=== PATIENT | female | born 1950 | race Caucasian/White ===

== ENCOUNTER 2017-09-14 21:18 | Emergency (ER) | payer MEDICARE, OTHER ==
[2017-09-14] MEDS ORDERED: Acetaminophen/HYDROcodone 325-10 MG Tab PO STA (22:38)
[2017-09-14] MEDS ORDERED: Ondansetron 8 MG Tab.DIS PO ONE (23:06)
[2017-09-14] MEDS ORDERED: Clindamycin HCl 150 MG Cap PO STA (23:14)
--- NOTE | 2017-09-14 23:15 | EDM.PDOC ---
ED HPI GENERAL MEDICAL PROBLEM - General Chief Complaint: General Stated Complaint: COLD/SORE THROAT Time Seen by Provider: 09/14/17 21:23 Source of Information: Reports: Patient History Limitations: Reports: No Limitations - History of Present Illness INITIAL COMMENTS - FREE TEXT/NARRATIVE: 66 y.o.f came to the ed with cold symptoms including a soar throat and painfull swallowing. 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 Generalized Pain Score (Numeric/FACES): 8 - Related Data Allergies Allergy/AdvReac Type Severity Reaction Status Date / Time erythromycin lactobionate Allergy Mild Diarrhea Verified 10/27/14 14:56 [From Erythrocin] sulfamethoxazole Allergy Nausea Verified 09/14/17 21:32 [From Bactrim] trimethoprim [From Bactrim] Allergy Nausea Verified 09/14/17 21:32 amoxicillin trihydrate AdvReac Mild Diarrhea Verified 10/27/14 14:55 [From Augmentin] potassium clavulanate AdvReac Mild Diarrhea Verified 10/27/14 14:55 [From Augmentin] Home Meds: Home Meds ALPRAZolam [Xanax] 0.5 mg PO DAILY PRN 10/27/14 [History] Albuterol Sulfate [Albuterol Sulfate HFA] 2 puff IH Q4HR PRN 10/27/14 [History] Aspirin [Derrick Chewable Aspirin] 81 mg PO DAILY 10/27/14 [History] Atenolol [Tenormin] 25 mg PO DAILY 10/27/14 [History] Calcium Carbonate/Vitamin D3 [Calcium 600-Vit D3 200 Tablet] 1 each PO DAILY 06/01 [History] Citalopram Hydrobromide [Celexa] 40 mg PO DAILY 10/27/14 [History] Losartan/Hydrochlorothiazide [Hyzaar 100-12.5 Tablet] 1 each PO DAILY 10/27/14 [ History] Multivit-Min/FA/Lycopene/Lut [Centrum Silver Tablet] 1 each PO DAILY 10/27/14 [ History] Olopatadine [Patanol 0.1% Ophth Soln] 1 drop EYEBOTH BID 10/27/14 [History] atorvaSTATin [Lipitor] 40 mg PO BEDTIME 10/27/14 [History] Clindamycin HCl 300 mg PO Q6HR #30 capsule 09/14/17 [Rx] Omeprazole 20 mg DAILY 09/14/17 [History] Ondansetron [Zofran ODT] 4 mg PO Q6H PRN #12 tab.dis 09/14/17 [Rx] traMADol HCl [Ultram] 50 mg PO Q6HR #12 tablet 09/14/17 [Rx] Past Medical History HEENT History: Reports: Sinusitis Cardiovascular History: Reports: High Cholesterol, Hypertension Respiratory History: Reports: Bronchitis, Recurrent, Pneumonia, Recurrent, Other (See Below) Other Respiratory History: uses inhaler when has cold Gastrointestinal History: Reports: Gastritis, Other (See Below) 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 History: Musculoskeletal History: Reports: Arthritis Psychiatric History: Reports: Anxiety, Depression - Infectious Disease History Infectious Disease History: Reports: Measles - Past Surgical History Head Surgeries/Procedures: Reports: None GI Surgical History: Reports: Colonoscopy, EGD Social & Family History - Family History Family Medical History: Noncontributory - Tobacco Use Smoking Status *Q: Current Every Day Smoker Years of Tobacco use: 40 Packs/Tins Daily: 0.5 - Caffeine Use Caffeine Use: Reports: Coffee, Soda - Alcohol Use Days Per Week of Alcohol Use: 0 - Recreational Drug Use Recreational Drug Use: No ED ROS GENERAL - Review of Systems Review Of Systems: See Below Constitutional: Reports: No Symptoms HEENT: Reports: Rhinitis, Throat Pain Respiratory: Reports: No Symptoms Cardiovascular: Reports: No Symptoms Endocrine: Reports: No Symptoms GI/Abdominal: Reports: No Symptoms : Reports: No Symptoms Musculoskeletal: Reports: No Symptoms Skin: Reports: No Symptoms Neurological: Reports: No Symptoms Psychiatric: Reports: No Symptoms Hematologic/Lymphatic: Reports: No Symptoms Immunologic: Reports: No Symptoms ED EXAM, GENERAL - Physical Exam Exam: See Below Exam Limited By: No Limitations General Appearance: Alert, WD/WN, Mild Distress Eye Exam: Bilateral Eye: Normal Inspection Ears: Normal External Exam Ear Exam: Bilateral Ear: Auricle Normal Nose: Normal Inspection, Normal Mucosa Throat/Mouth: Normal Lips, Normal Gums, No Airway Compromise, Other (pharyngitis ) Head: Atraumatic, Normocephalic Neck: Normal Inspection, Supple, Non-Tender, Full Range of Motion Respiratory/Chest: No Respiratory Distress, Lungs Clear, Normal Breath Sounds Cardiovascular: Normal Peripheral Pulses, Regular Rate, Rhythm, No Edema Peripheral Pulses: 1+: Brachial (R) GI/Abdominal: Normal Bowel Sounds, Soft, Non-Tender, No Organomegaly, No Abnormal Bruit (Female) Exam: Deferred Rectal (Female) Exam: Deferred Back Exam: Normal Inspection, Full Range of Motion Extremities: Normal Inspection, Normal Range of Motion, Non-Tender, No Pedal Edema, Normal Capillary Refill Neurological: Alert, Oriented, CN II-XII Intact, Normal Cognition, Normal Gait, No Motor/Sensory Deficits Psychiatric: Normal Affect, Normal Mood Skin Exam: Warm, Dry, Intact, Normal Color, No Rash Lymphatic: No Adenopathy Course - Vital Signs Text/Narrative:: 66 y.o.f came to the ed with cold symptoms including a soar throat and painfull swallowing. No other acute medical issues BP 148/78 pulse 78 RR 18 Pulse ox 98 Temp 36.8 PE: WNWD F with a cold symtpms and a sore throat. Nausea Labs: Sterp and infuenza test were neg Impression: Pharynditis, step presumed Tx: Clindamycin, [place], Zofran Reexam: Improved Plan; D/C with instructioms Last Recorded V/S: Last Vital Signs Temp 36.7 C 09/14/17 21:23 Pulse 73 09/14/17 21:23 Resp 20 09/14/17 23:15 BP 147/85 H 09/14/17 23:15 Pulse Ox 97 09/14/17 23:15 - Orders/Labs/Meds Orders: Active Orders 24 hr Category Date Time Status Chest 2V [CR] Stat Exams 09/14/17 21:52 Taken Max Facial Sinus wo Cont [CT] Stat Exams 09/14/17 22:00 Taken CULTURE STREP A CONFIRMATION [RM] Stat Lab 09/14/17 21:35 Results STREP SCRN A RAPID W CULT CONF [RM] Stat Lab 09/14/17 21:35 Ordered Meds: Medications Discontinued Medications Generic Name Dose Route Start Last Admin Trade Name Freq PRN Reason Stop Dose Admin Hydrocodone Bitart/Acetaminophen 1 tab 09/14/17 22:38 09/14/17 23:03 [place] 325-10 Mg PO 09/14/17 22:39 1 tab ONETIME STA Administration Clindamycin HCl 450 mg 09/14/17 23:14 09/14/17 23:26 Cle[place] PO 09/14/17 23:15 450 mg ONETIME STA Administration Ondansetron HCl 8 mg 09/14/17 23:06 09/14/17 23:11 Zofran Odt PO 09/14/17 23:07 8 mg ONETIME ONE Administration Departure - Departure Time of Disposition: 23:15 Disposition: Home, Self-Care 01 Condition: Good Clinical Impression: Pharyngitis Qualifiers: Pharyngitis/tonsillitis etiology: other specified organisms Qualified Code(s): J02.8 - Acute pharyngitis due to other specified organisms - Discharge Information Prescriptions: Clindamycin HCl 300 mg PO Q6HR #30 capsule traMADol HCl [Ultram] 50 mg PO Q6HR #12 tablet Ondansetron [Zofran ODT] 4 mg PO Q6H PRN #12 tab.dis PRN Reason: Nausea Instructions: Ondansetron oral dissolving tablet, Otitis Media, Adult, Easy-to- Read, Viral Respiratory Infection, [id number], Clindamycin capsules, Pharyngitis, [id number] Referrals: Светлана Siegel NP [Primary Care Provider] - Forms: ED Department Discharge Additional Instructions: Presumed strep pharyngitis, please take the meds as recommended, please follow up next week at clinic for recheck, come back if your symptoms get worse acutely. Increase fluids. - My Orders Last 24 Hours: My Active Orders 09/14/17 21:35 CULTURE STREP A CONFIRMATION [RM] Stat STREP SCRN A RAPID W CULT CONF [RM] Stat 09/14/17 21:52 Chest 2V [CR] Stat 09/14/17 22:00 Max Facial Sinus wo Cont [CT] Stat - Assessment/Plan Last 24 Hours: My Active Orders 09/14/17 21:35 CULTURE STREP A CONFIRMATION [RM] Stat STREP SCRN A RAPID W CULT CONF [RM] Stat 09/14/17 21:52 Chest 2V [CR] Stat 09/14/17 22:00 Max Facial Sinus wo Cont [CT] Stat
[2017-09-15 01:12] VITALS: BP 147/85
== END 2017-09-14 23:35 | disposition home or self-care (01) ==
LOC: FB.ED 21:18
DX: J02.8 Acute pharyngitis due to other specified organisms (principal); F17.210 Nicotine dependence, cigarettes, uncomplicated; I10 Essential (primary) hypertension; E78.00 Pure hypercholesterolemia, unspecified; Z79.82 Long term (current) use of aspirin; Z79.899 Other long term (current) drug therapy; Z88.1 Allergy status to other antibiotic agents; Z88.8 Allergy status to other drugs, medicaments and biological substances; Z88.2 Allergy status to sulfonamides
CPT/HCPCS: 70486; 71046; 87081; 87804; 87880; 99284; A9270; 99283

== ENCOUNTER 2018-08-10 20:14 | Emergency (ER) | payer MEDICARE, OTHER ==
[2018-08-10] MEDS ORDERED: Ketorolac 30 MG/ML SDV IM ONE (20:25)
[2018-08-10] MEDS ORDERED: hydrOXYzine HCl 50 MG/ML SDV IM ONE (20:25)
--- NOTE | 2018-08-10 20:29 | EDM.PDOC ---
ED HPI GENERAL MEDICAL PROBLEM - General Stated Complaint: HEADACHE,CHILL Time Seen by Provider: 08/10/18 20:27 Source of Information: Reports: Patient History Limitations: Reports: No Limitations - History of Present Illness INITIAL COMMENTS - FREE TEXT/NARRATIVE: 67-year-old female who complains of headache essentially global, moderate to severe headache that makes it hard for her to sleep tonight. This was preceded by cough, fever and chills that started yesterday .She denies any neck stiffness but endorses nausea and vomiting, and inability to keep anything down. She has a history of anxiety, hyperlipidemia and hypertension headache Pain Score (Numeric/FACES): 6 - Related Data Allergies Allergy/AdvReac Type Severity Reaction Status Date / Time erythromycin lactobionate Allergy Mild Diarrhea Verified 08/10/18 21:00 [From Erythrocin] sulfamethoxazole Allergy Nausea Verified 08/10/18 21:00 [From Bactrim] trimethoprim [From Bactrim] Allergy Nausea Verified 08/10/18 21:00 amoxicillin trihydrate AdvReac Mild Diarrhea Verified 08/10/18 21:00 [From Augmentin] potassium clavulanate AdvReac Mild Diarrhea Verified 08/10/18 21:00 [From Augmentin] Home Meds: Home Meds ALPRAZolam [Xanax] 0.5 mg PO DAILY PRN 10/27/14 [History] Albuterol Sulfate [Albuterol Sulfate HFA] 2 puff IH Q4HR PRN 10/27/14 [History] Aspirin [Derrick Chewable Aspirin] 81 mg PO DAILY 10/27/14 [History] Atenolol [Tenormin] 25 mg PO DAILY 10/27/14 [History] Calcium Carbonate/Vitamin D3 [Calcium 600-Vit D3 200 Tablet] 1 each PO DAILY 06/01 [History] Citalopram Hydrobromide [Celexa] 40 mg PO DAILY 10/27/14 [History] Losartan/Hydrochlorothiazide [Hyzaar 100-12.5 Tablet] 1 each PO DAILY 10/27/14 [ History] Multivit-Min/FA/Lycopene/Lut [Centrum Silver Tablet] 1 each PO DAILY 10/27/14 [ History] Olopatadine [Patanol 0.1% Ophth Soln] 1 drop EYEBOTH BID 05/12/15 [History] atorvaSTATin [Lipitor] 40 mg PO BEDTIME 10/27/14 [History] Omeprazole 20 mg DAILY 09/14/17 [History] Past Medical History HEENT History: Reports: Sinusitis Cardiovascular History: Reports: High Cholesterol, Hypertension Respiratory History: Reports: Bronchitis, Recurrent, Pneumonia, Recurrent, Other (See Below) Other Respiratory History: uses inhaler when has cold Gastrointestinal History: Reports: Gastritis, Other (See Below) 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 - Physical Exam Exam: See Below Exam Limited By: No Limitations General Appearance: Alert, WD/WN Ears: Normal External Exam Nose: Normal Inspection Throat/Mouth: Normal Inspection Head Exam: Atraumatic, Normocephalic Neck: Normal Inspection, Supple, Non-Tender, Full Range of Motion Respiratory/Chest: Decreased Breath Sounds, Crackles Neuro Exam (Abbreviated): Alert, Oriented, CN II-XII Intact Course - Vital Signs Last Recorded V/S: Last Vital Signs Temp 98.7 F 08/10/18 20:33 Pulse 76 08/10/18 20:33 Resp 16 08/10/18 20:33 BP 107/63 08/10/18 20:33 Pulse Ox 99 08/10/18 20:33 - Orders/Labs/Meds Orders: Active Orders 24 hr Category Date Time Status Chest 2V [CR] Stat Exams 08/10/18 20:25 Taken Meds: Medications Discontinued Medications Generic Name Dose Route Start Last Admin Trade Name Freq PRN Reason Stop Dose Admin Hydroxyzine HCl 100 mg 08/10/18 20:25 08/10/18 20:51 Vistaril IM 08/10/18 20:26 100 mg ONETIME ONE Administration Ketorolac Tromethamine 15 mg 08/10/18 20:25 08/10/18 20:51 Toradol IM 08/10/18 20:26 15 mg ONETIME ONE Administration Departure - Departure Time of Disposition: 21:07 Disposition: Home, Self-Care 01 Condition: Good Clinical Impression: Influenza - Discharge Information Referrals: Светлана Siegel NP [Primary Care Provider] - - Problem List & Annotations (1) Influenza SNOMED Code(s): 8750853 Code(s): J11.1 - FLU DUE TO UNIDENTIFIED INFLUENZA VIRUS W OTH RESP MANIFEST Status: Acute Current Visit: Yes (2) Headache SNOMED Code(s): 71852124 Code(s): R51 - HEADACHE Status: Acute Current Visit: Yes Qualifiers: Headache type: tension-type - Problem List Review Problem List Initiated/Reviewed/Updated: Yes - My Orders Last 24 Hours: My Active Orders 08/10/18 20:25 Chest 2V [CR] Stat - Assessment/Plan Last 24 Hours: My Active Orders 08/10/18 20:25 Chest 2V [CR] Stat Plan: Tamiflu. Symptomatic relief
[2018-08-10 20:37] VITALS: BP 107/63
== END 2018-08-10 21:30 | disposition home or self-care (01) ==
LOC: FB.ED 20:14
DX: J10.1 Influenza due to other identified influenza virus with other respiratory manifestations (principal); E78.00 Pure hypercholesterolemia, unspecified; I10 Essential (primary) hypertension; F41.9 Anxiety disorder, unspecified; F32.9 Major depressive disorder, single episode, unspecified; Z88.1 Allergy status to other antibiotic agents; Z88.8 Allergy status to other drugs, medicaments and biological substances
CPT/HCPCS: 71046; 87804; 96372; 99283; J1885; J3410

== ENCOUNTER 2024-02-26 07:28 | Day surgery (SDC) | payer MEDICARE, OTHER ==
[2024-02-26] MEDS ORDERED: fentaNYL 100 MCG/2 ML SDV IV ONE (07:29)
[2024-02-26] MEDS ORDERED: Midazolam 1 MG/ML 2 ML SDV IV ONE (07:29)
[2024-02-26] MEDS ORDERED: Lactated Ringers 1,000 ML IV PRN (07:30)
[2024-02-26] MEDS: Sodium Chloride 0.9% 10 ML Syringe FLUSH PRN (08:04)
[2024-02-26] MEDS: acetaZOLAMIDE 500 MG Cap.ER PO ONE (09:35)
[2024-02-26 11:47] VITALS: BP 150/80; PULSE 54
== END 2024-02-26 10:08 | disposition home or self-care (01) ==
LOC: FB.SDS 07:28
PROVIDERS: ATTEND Ophthalmology
DX: H26.9 Unspecified cataract (principal); J01.90 Acute sinusitis, unspecified; J45.909 Unspecified asthma, uncomplicated; E78.5 Hyperlipidemia, unspecified; I10 Essential (primary) hypertension; I25.10 Atherosclerotic heart disease of native coronary artery without angina pectoris; Z79.899 Other long term (current) drug therapy; Z88.1 Allergy status to other antibiotic agents; Z88.8 Allergy status to other drugs, medicaments and biological substances; Z88.2 Allergy status to sulfonamides; Z87.891 Personal history of nicotine dependence
CPT/HCPCS: 66984; A9270; J2250; J3010; J3490; V2632; 00142; 99100

== ENCOUNTER 2024-03-11 08:02 | Day surgery (SDC) | payer MEDICARE, OTHER ==
[~2024-03-11 08:02] MED LIST: Lactated Ringers 1,000 ML IV PRN
[2024-03-11] MEDS ORDERED: fentaNYL 100 MCG/2 ML SDV IV ONE (08:03)
[2024-03-11] MEDS ORDERED: Midazolam 1 MG/ML 2 ML SDV IV ONE (08:03)
[2024-03-11] MEDS: Sodium Chloride 0.9% 10 ML Syringe FLUSH PRN (08:50)
[2024-03-11] MEDS: acetaZOLAMIDE 500 MG Cap.ER PO ONE (10:24)
[2024-03-11 14:08] VITALS: BP 122/75; PULSE 82
== END 2024-03-11 10:55 | disposition home or self-care (01) ==
LOC: FB.SDS 08:02
PROVIDERS: ATTEND Ophthalmology
DX: H26.9 Unspecified cataract (principal); J01.90 Acute sinusitis, unspecified; J45.909 Unspecified asthma, uncomplicated; E66.9 Obesity, unspecified; Z79.899 Other long term (current) drug therapy; Z88.8 Allergy status to other drugs, medicaments and biological substances; Z88.1 Allergy status to other antibiotic agents; Z88.2 Allergy status to sulfonamides; Z68.39 Body mass index [BMI] 39.0-39.9, adult
CPT/HCPCS: 66984; A9270; J2250; J3010; J3490; V2632; 00142; 99100